=== PATIENT | female | born 1975 | race Asian ===

== ENCOUNTER → 2022-12-08 | Outpatient (CLI) | payer OTHER | LOC: M WHC 12:36 | PROVIDERS: ATTEND Family Medicine | DX: Z12.31 Encounter for screening mammogram for malignant neoplasm of breast (principal) ==

== ENCOUNTER → 2023-03-07 | Day surgery (SDC) | payer OTHER ==
[~2023-03-07] VITALS: Ht 154.9 cm; Wt 54.0 kg
[~2023-03-07] MED LIST: ALIR75PE3 SC; ATOR40TA75 PO; ECOT81TA5 PO; GLYCOPYRROLATE INJ 0.2 MG/ML 2 ML VIAL As Ordered ONE; LIDOCAINE 2% 100MG/5ML SDV (FOR ANES.) As Ordered ONE; NITR2.5C10 PO; NS 1,000 ML IV ONE; VENL37TA PO; ZETI10TA16 PO; propofoL 200 MG/20 ML VIAL As Ordered ONE
[2023-03-07 14:32] VITALS: TEMP 97
[2023-03-07 14:50] VITALS: BP 118/68; O2SAT 100
== END | disposition home or self-care (01) ==
LOC: M OPP 12:20
PROVIDERS: ATTEND Internal Medicine Gastroenterology
DX: K22.2 Esophageal obstruction (principal); K44.9 Diaphragmatic hernia without obstruction or gangrene; K30 Functional dyspepsia; Z79.02 Long term (current) use of antithrombotics/antiplatelets; Z79.82 Long term (current) use of aspirin; Z79.810 Long term (current) use of selective estrogen receptor modulators (SERMs); Z79.899 Other long term (current) drug therapy; Z88.8 Allergy status to other drugs, medicaments and biological substances; Z91.041 Radiographic dye allergy status